=== PATIENT | female | born 1990 | race African-American/Black ===

== ENCOUNTER 2019-04-16 12:31 | Emergency (ER) | payer BC ==
[~2019-04-16] VITALS: Wt 57.4 kg
[~2019-04-16 12:31] MED LIST: ACET500C5 PO; DOCU-144 PO; FER325 PO; IBUP-1542 PO
[2019-04-16 12:36] VITALS: BP 113/68; PULSE 80; RESP 20
== END 2019-04-16 15:34 | disposition home or self-care (01) ==
LOC: FTE 12:31
DX: B27.90 Infectious mononucleosis, unspecified without complication (principal)
CPT/HCPCS: 80053; 81025; 85025; 86308; 87880; 99283